=== PATIENT | female | born 1955 | race Caucasian/White ===

== ENCOUNTER → 2016-06-28 | Day surgery (SDC) | payer OTHER ==
[~2016-06-28] VITALS: Ht 165.1 cm; Wt 78.0 kg
[~2016-06-28] MED LIST: ACETAMINOPHEN/HYDROcodone 325 MG/10 MG TAB ONE; BISO5TAB2 PO; BUPIVACAINE HCL PF 0.5% 30 ML VIAL ONE; CEPH-460 PO; HYDR-3288 PO; IBUP800T23 PO; LACTATED RINGER'S 1000 ML INJ 1,000 ML IV ONE; LACTATED RINGER'S 1000 ML INJ 1,000 ML ONE; LIDOCAINE HCL 2% 50 ML VIAL ONE; MEDR4PAK PO; MIDAZOLAM HCL 5 MG/ML VIAL (1 ML) ONE; MISC-202; MORPHINE SULFATE 4 MG/ML INJ ONE; NEOMYCIN/POLYMYXIN 1 ML G.U. IRRIGANT IR ONE; NORC5TAB PO; ONDANSETRON HCL 4 MG/2 ML VIAL IV PUSH ONE; PROPOFOL 200 MG/20 ML AMP IV ONE; SODIUM CHLORIDE 0.9% INJ 50 ML ONE; VENL75XR PO; ceFAZolin INJ 1,000 MG VIAL ONE; fentaNYL CITRATE 250 MCG/5 ML AMP ONE
[2016-06-28 08:46] VITALS: BP 163/94; PULSE 66; RESP 18; TEMP 98.6; O2SAT 99
[2016-06-28 09:18] LABS: HEMATOCRIT 44.9 % (35.0-46.0); MEAN CELL VOLUME 88.9 FL (80.0-100.0); MEAN CORPUSCULAR HEMOGLOBIN 29.9 PG (27.0-34.0); MEAN CORPUSCULAR HGB CONC 33.6 % (32.0-36.0); PLATELET COUNT 273 TH/MM3 (150-450); RED BLOOD COUNT 5.05 MIL/MM3 (4.00-5.30); RED CELL DISTRIBUTION WIDTH 13.8 % (11.6-17.2); REVIEW FLAG FINAL; WHITE BLOOD COUNT 9.5 TH/MM3 (4.0-11.0)
[2016-06-28 11:55] VITALS: PULSE 80
[2016-06-28 12:45] VITALS: TEMP 97.6
--- NOTE | 2016-06-28 12:52 | MP ---
cc: KALEN RAMIREZ III, M.D. DATE OF SURGERY 06/28/2016 PREOPERATIVE DIAGNOSIS 1. Right wrist TFCC injury 2. Right carpal tunnel syndrome PROCEDURE 1. Right wrist arthroscopy, diagnostic 2. Right wrist arthroscopic assisted TFCC repair 3. Right open carpal tunnel release SURGEON Kalen Ramirez III, MD PROCEDURE The patient was brought to the operating room, placed supine on the operating table. After the correct site and side of surgery were verified by members of each team in the room multiple times including the patient and myself and after adequate preoperative markings and preoperative written consent were verified by everyone and after adequate preop time-out was performed to everyone's satisfaction and after adequate general anesthesia had been achieved, the right upper extremity was prepped and draped in the traditional sterile surgical fashion. A 50/50 mixture of 2% plain lidocaine and 0.5% plain Marcaine was infiltrated into the skin and subcutaneous tissue in the base of the palm. The limb was exsanguinated using an Jaime wrap and a highly placed well-padded axillary tourniquet was inflated to 200 mmHg for a grand total of 79 minutes continuous. A longitudinally oriented incision at the base of palm within the skin creases was made and carried down through the skin and subcutaneous tissue. The palmar fascia was retracted in opposite directions. Bipolar electrocautery was used as needed to control subcutaneous bleeders. The transverse carpal ligament was identified and then divided in its midline in its entirety to its proximal most to its distal most extents completely freeing the carpal tunnel and its contents. The median nerve was completely intact and was under pressure and had some rebound once the ligament was released. All the other carpal tunnel contents were intact as well. There were no other anatomic abnormalities or any mass effect. Thorough irrigation with saline was performed and the skin edges were reapproximated using running 4-0 nylon. Finger traps were then applied to the second, third, fourth fingers and it was placed into a tabletop traction tower and 5-10 pounds of traction was used. Ultimately, the wrist joint was infiltrated with the same local anesthetic mixture. A small 8 mm longitudinally oriented incision was made 1 cm distal to Thanh's tubercle. Blunt dissection was performed and the wrist joint was easily entered and the wrist arthroscopy trocar was inserted followed by the camera. Infiltration with saline was then performed and an 18 gauge needle ulnarly was placed for drainage. Examination revealed an intact carpal and radial carpal ligaments, but a significant amount of inflammation and the torn TFCC up at its ulnar attachment that was quite large. A second portal using the 4/5 portal was made in the usual fashion. A probe was placed and there was a positive mattress sign even though there was an ulnar sided tear. The radial attachment of the TFCC was completely intact. A shaver was then placed and all the inflammation throughout the entire radiocarpal joint and ulnocarpal joint was debrided. Then using the TFCC repair kit from [employer] arthroscopically assisted repair of the TFCC was then performed and then incision was made ulnarly and three separate 2-0 PDS sutures re-securing the ulnar side of the TFCC were snuggly placed and this was done under a arthroscopic guidance. There were two ulnar branches of the dorsal sensory branch dorsal sensory branch of the ulnar nerve and these were both identified and protecting and PDS tied were done deep to these and they were kept intact and uninjured. The wrist was then examined again and the mattress side in the TFCC was again confirmed. There were no other abnormalities identified. The probe and the Cam were then removed, excess fluid was evacuated. The skin edges were all then irrigated and closed using interrupted and running 4-0 nylon sutures in the usual fashion. Additional local anesthetic was then infiltrated into the radiocarpal joint for postoperative pain control. The axillary tourniquet was released and the hand and all the fingers on right became immediately soft, pink and warm and had brisk capillary refill of less than two seconds. The wrist was removed from the traction tower prior to this and Betadine Adaptic dressings were applied on top of the wounds, followed by a bulky soft dressing. There were no areas of edema or tenseness from infiltration of fluid anywhere. A well-padded, well molded long-arm sugar-tong splint was made in the usual fashion. The patient was awakened from anesthesia and transported to the Post Anesthesia Care Unit awake and in stable condition. Sponge, needle, and instrument counts were correct at the end of the case as reported by the nurses in the room. MD LAUREEN Meyers III/JAMES /12:18 PM /12:33 PM
[2016-06-28 13:00] VITALS: PULSE 76
[2016-06-28 13:55] VITALS: BP 107/65; PULSE 66; RESP 14; O2SAT 94
== END | disposition home or self-care (01) ==
LOC: CSDC 08:07
PROVIDERS: ATTEND Orthopaedic Surgery Hand Surgery
DX: S69.91XA Unspecified injury of right wrist, hand and finger(s), initial encounter (principal); G56.01 Carpal tunnel syndrome, right upper limb; Z01.818 Encounter for other preprocedural examination
CPT/HCPCS: 01830; 29846; 36415; 64721; 85027; J0690; J2250; J2270; J2405; J3010; J7120

== ENCOUNTER 2016-08-06 19:15 | Emergency (ER) | payer OTHER ==
[~2016-08-06] VITALS: Ht 165.1 cm; Wt 77.0 kg
[~2016-08-06 19:15] MED LIST changes: -ACETAMINOPHEN/HYDROcodone 325 MG/10 MG TAB ONE; -BUPIVACAINE HCL PF 0.5% 30 ML VIAL ONE; -CEPH-460 PO; -HYDR-3288 PO; -IBUP800T23 PO; -LACTATED RINGER'S 1000 ML INJ 1,000 ML IV ONE; -LACTATED RINGER'S 1000 ML INJ 1,000 ML ONE; -LIDOCAINE HCL 2% 50 ML VIAL ONE; -MEDR4PAK PO; -MIDAZOLAM HCL 5 MG/ML VIAL (1 ML) ONE; -MISC-202; -MORPHINE SULFATE 4 MG/ML INJ ONE; -NEOMYCIN/POLYMYXIN 1 ML G.U. IRRIGANT IR ONE; -NORC5TAB PO; -ONDANSETRON HCL 4 MG/2 ML VIAL IV PUSH ONE; -PROPOFOL 200 MG/20 ML AMP IV ONE; -SODIUM CHLORIDE 0.9% INJ 50 ML ONE; -ceFAZolin INJ 1,000 MG VIAL ONE; -fentaNYL CITRATE 250 MCG/5 ML AMP ONE
[2016-08-06 19:18] VITALS: BP 147/76; PULSE 73; RESP 16; TEMP 98; O2SAT 95
[2016-08-09] MEDS ORDERED: MEDR4PAK PO (10:34)
[2016-08-09] MEDS ORDERED: NORC5TAB PO (10:34)
[2016-08-09] MEDS ORDERED: MISC-202 (10:43)
== END 2016-08-06 21:44 | disposition left against medical advice (07) ==
LOC: NED 19:15
DX: M25.531 Pain in right wrist (principal)
CPT/HCPCS: 99281